=== PATIENT | female | born 1980 | race African-American/Black ===

== ENCOUNTER 2023-04-15 18:38 | Emergency (ER) | payer OTHER, SELFPAY ==
[2023-04-15 19:24] VITALS: BP 160/105; PULSE 102; RESP 15; O2SAT 100
[2023-04-15 21:46] LABS: Glucose Point of Care 373 mg/dl (65-105)
--- NOTE | 2023-04-15 22:55 | ED.GENADULT ---
HPI - General Adult General Chief complaint: Recheck/Abnormal Lab/Rx Stated complaint: BG is high Time Seen by Provider: 04/15/23 21:27 Source: patient Mode of arrival: ambulatory Limitations: no limitations History of Present Illness HPI narrative: This is a 43-year-old female with PMH of HTN who presents to the ED with chief complaint of high blood sugars measured by her office staff today. Reports that she has been having some hot flashes and increased thirst over the last couple of weeks. No formal history of diabetes. reports a little bit of nausea and 1 episode of vomiting today. denies GI bleeding symptoms, fevers, chills, Related Data Allergies Allergy/AdvReac Type Severity Reaction Status Date / Time No Known Allergies Allergy Verified 04/15/23 23:13 Exam Narrative: GENERAL: Well-appearing, well-nourished, and in no acute distress. obese HEAD: Normocephalic, atraumatic. EYES: PERRLA and EOMI. ENT: Nares clear, no rhinorrhea or epistaxis. Mucous membranes moist. Oropharynx without tonsillar hypertrophy exudate or other lesions. NECK: Supple. No adenopathy or masses. CHEST: No respiratory distress. Clear to auscultation. No wheezes rales or rhonchi HEART: Regular rate and rhythm. No murmur heard. Normal peripheral pulses. ABDOMEN: Soft, nontender, nondistended, normal active bowel sounds. MSK: Normal range of motion. No edema. SKIN: Warm, dry, no rash. NEURO: Alert and oriented x3. No focal deficits. PSYCH: Normal mood and affect. Course Vital Signs Vital signs: Vital Signs Pulse Rate 102 H 04/15/23 19:24 Respiratory Rate 15 04/15/23 19:24 Blood Pressure 160/105 H 04/15/23 19:24 Pulse Oximetry 100 04/15/23 19:24 Pulse Rate 89 04/16/23 01:16 Respiratory Rate 15 04/15/23 19:24 Blood Pressure 142/85 H 04/16/23 01:16 Pulse Oximetry 100 04/16/23 01:16 Medical Decision Making MDM Narrative Medical decision making narrative: this is a 43-year-old female who presents to the ED with chief complaint of high blood sugars. She has had some increased thirst and occasional hot flashes and headache recently. No formal history of diabetes. Vitals show initial elevated blood pressure with and slightly tachycardic but afebrile. Abdominal exam is benign. Blood sugar initially is in the upper 300s. She was given several L of fluids which improved the blood sugars and her symptoms. She was also given Toradol and Tylenol for headache. CBC is unremarkable. CMP remarkable only for high blood sugar. Urinalysis shows high specific gravity and glucose but no infection. Symptoms are most likely consistent with diabetes mellitus. Instructed her to follow-up closely with PCP for official diagnosis and treatment. Will start on metformin for now. Pt will be discharged in stable condition. Return precautions given and supportive measures discussed. Pt is understanding and agreeable with plan for discharge and follow-up with PCP. Vital Signs Vital Signs: Vital Signs Pulse Rate 102 H 04/15/23 19:24 Respiratory Rate 15 04/15/23 19:24 Blood Pressure 160/105 H 04/15/23 19:24 Pulse Oximetry 100 04/15/23 19:24 Pulse Rate 89 04/16/23 01:16 Respiratory Rate 15 04/15/23 19:24 Blood Pressure 142/85 H 04/16/23 01:16 Pulse Oximetry 100 04/16/23 01:16 Lab Data 04/15/23 22:50 04/15/23 22:50 Labs: Lab Results 04/15/23 04/15/23 04/16/23 Range/Units 21:44 22:50 01:12 WBC 10.5 H (4.5-10.0) K/mm3 RBC 5.39 (4.2-5.4) M/mm3 Hgb 13.2 (12.0-15.0) g/dL Hct 42.9 (37.0-47.0) % MCV 79.6 L (80-100) fl MCH 24.5 L (26-34) pg MCHC 30.8 L (32-36) g/dl RDW 14.7 H (11.5-14.5) % Plt Count 338 (150-375) k/mm3 MPV 9.3 (7.4-10.4) fl Immature Gran % (Auto) 0.2 (0-0.5) % Neut % (Auto) 48.4 (45.5-73.1) % Lymph % (Auto) 41.7 (18.3-44.2) % [place] % (Auto) 7.4 (2.6-8.5) % Eo
[2023-04-15 23:04] LABS: Basophils Absolute Auto 0.1 K/mm3 (0.0-0.1); Basophils Percent Auto 0.8 % (0.2-1.2); Eosinophils Absolute Auto 0.2 K/mm3 (0-0.3); Eosinophils Percent Auto 1.5 % (0-4.4); Hematocrit 42.9 % (37.0-47.0); Hemoglobin 13.2 g/dL (12.0-15.0); Immature Granulocyte Absolute 0.02 K/mm3 (0.00-0.031); Immature Granulocyte Percent A 0.2 % (0-0.5); Lymphocytes Absolute Auto 4.37 K/mm3 (0.9-3.2); Lymphocytes Percent Auto 41.7 % (18.3-44.2); Mean Corpuscular HGB Conc 30.8 g/dl (32-36); Mean Corpuscular Hemoglobin 24.5 pg (26-34); Mean Corpuscular Volume 79.6 fl (80-100); Mean Platelet Volume 9.3 fl (7.4-10.4); Monocytes Absolute Auto 0.8 K/mm3 (0.1-0.6); Monocytes Percent Auto 7.4 % (2.6-8.5); Neutrophils Absolute Auto 5.1 K/mm3 (1.3-6.7); Neutrophils Percent Auto 48.4 % (45.5-73.1); Platelet Count Result 338 k/mm3 (150-375); Red Blood Count 5.39 M/mm3 (4.2-5.4); Red Cell Distribution Width 14.7 % (11.5-14.5); White Blood Count 10.5 K/mm3 (4.5-10.0)
[2023-04-15 23:08] LABS: Appearance Urine Clear (Clear); Bilirubin Urine Negative (Negative); Blood Urine Negative (Negative); Color Urine Yellow (Yellow); Glucose Urine UA 3+ mg/dL (Negative); Ketones Urine Trace mg/dL (Negative); Leukocyte Esterase Ur Negative LEU/UL (Negative); Nitrate Urine Negative (Negative); Protein Urine Negative (Negative); Urobilinogen Urine 0.2 mg/dL (<2.0)
[2023-04-15] MEDS: SODIUM CHLORIDE 0.9% IV 1,000 ML 999 ML IV CONT ×2 (23:13)
[2023-04-15] MEDS: ONDANSETRON INJ 4 MG/2 ML VIAL IV PUSH (23:14)
[2023-04-15 23:19] VITALS: O2SAT 98
[2023-04-15 23:20] LABS: Alanine Aminotransferase 44 U/L (6-35); Albumin Level 4.5 g/dL (3.5-5.1); Alkaline Phosphatase 95 U/L (38-126); Anion Gap 8 mmol/L (8-16); Aspartate Amino Transferase 42 U/L (14-36); Bilirubin,Total 0.6 mg/dL (0.2-1.3); Blood Urea Nitrogen 5 mg/dL (7-17); Calcium 9.5 mg/dL (8.4-10.2); Carbon Dioxide 29 mmol/L (22-30); Chloride 100 mmol/L (98-107); Estimated CRCL calculation 153 ml/min; Estimated Glomerular Filt Rate > 60; Glucose 342 mg/dL (65-110); Potassium 4.7 mmol/L (3.4-5.0); Sodium 137 mmol/L (137-145)
[2023-04-15 23:30] VITALS: O2SAT 100
[2023-04-15 23:43] LABS: Add Urine Microscopic? NO
[2023-04-15 23:45] VITALS: O2SAT 100
[2023-04-16] VITALS (7 sets, daily range): BP systolic 142–143; BP diastolic 79–85; PULSE 89; O2SAT 99–100
[2023-04-16] MEDS: ACETAMINOPHEN 500 MG TABLET 1000 MG PO (00:18)
[2023-04-16] MEDS: KETOROLAC 15 MG/ML VIAL (*BKC) IV PUSH (00:18)
[2023-04-16 01:15] LABS: Glucose Point of Care 309 mg/dl (65-105)
== END 2023-04-16 01:44 | disposition home or self-care (01) ==
PROVIDERS: Emergency Provider Physician Assistant
DX: R73.9 Hyperglycemia, unspecified (principal); I10 Essential (primary) hypertension
CPT/HCPCS: 36415; 80053; 81003; 82948; 85025; 96361; 96374; 99284; A9270; J1885; J2405; J7030